=== PATIENT | male | born 1955 | race African-American/Black ===

== ENCOUNTER 2019-06-20 19:09 | Inpatient (IN) | payer OTHER ==
[~2019-06-20] VITALS: Ht 180.3 cm; Wt 103.4 kg
[2019-06-20 19:12] VITALS: BP 161/76
--- NOTE | 2019-06-20 19:19 | NUR ---
PATIENT TAKEN TO ER ROOM 3 WITHOUT OBTAINING UA FIRST D/T CHEST PAIN.
[2019-06-20 19:51] LABS: ABSOLUTE NEUTROPHILS 11.3 thou/uL (1.4-8.2); BASOPHILS 0.8 % (0.0-2.0); EOSINOPHILS 1.2 % (0.0-3.0); HEMATOCRIT 44.1 % (42.0-52.0); HEMOGLOBIN 14.7 gm/dL (14.0-18.0); LYMPHOCYTES 18.5 % (24.0-44.0); MCH 29.2 pg (26.0-34.0); MCHC 33.4 g/dL (28.0-37.0); MCV 87.6 fL (80.0-100.0); MONOCYTES 6.1 % (1.0-8.0); PLATELET COUNT 232 thou/uL (150-400); POLYS 73.4 % (36.0-66.0); RBC 5.04 mil/uL (4.50-6.00); RDW 13.7 % (10.5-14.5); WBC 15.4 thou/uL (4.0-11.0)
[2019-06-20 19:59] LABS: ANION GAP 8 mmol/L (7-16); BUN 12 mg/dL (7-18); CALCIUM 9.4 mg/dL (8.5-10.1); CHLORIDE 107 mmol/L (98-107); CO2 29 mmol/L (21-32); GLUCOSE 89 mg/dL (74-106); POTASSIUM 3.5 mmol/L (3.5-5.1); SODIUM 144 mmol/L (136-145)
[2019-06-20 20:05] LABS: ALBUMIN 3.6 g/dL (3.4-5.0); DIRECT BILIRUBIN < 0.1 mg/dL (<0.1-0.2); LIPASE 81 U/L (73-393); SGOT 12 U/L (15-37); SGPT 18 U/L (30-65); TOTAL BILIRUBIN 0.4 mg/dL (<0.1-1.0); TOTAL PROTEIN 7.4 g/dL (6.4-8.2)
[2019-06-20 23:14] VITALS: BP 162/88
[2019-06-20 23:59] VITALS: BP 149/89
[2019-06-21 00:25] VITALS: BP 147/67
--- NOTE | 2019-06-21 04:15 | NUR ---
ADMITTED FROM ER 'S CARE. ADMITTED WITH EPIGASTRIC PAIN. SEEN BY NOMI STODDARD PRINCIPAL SYSTEM SOFTWARE ENGINEER FOR . NO S/S ACUTE DISTRESS NOTED OR REPORTED AT THIS TIME. WILL CONT TO MONITOR FOR ANY CHANGES IN CONDITION.
[2019-06-21 08:00] VITALS: BP 155/82
--- NOTE | 2019-06-21 10:19 | NUR ---
Received awake on bed. Due medications given as prescribed, able to swallow meds w/o difficulty. On clear liquid diet- tolerating well; no nausea, no vomiting and no abdominal pain. On room air. Vital signs stable. Complained of pain, due PRN pain meds given as prescribed. With SL at R AC- intact. Up ad yolanda. With GI consult- Dr Mathews spa consultant- consult has been called in, a/w rounds. Independent with ADLs.
--- NOTE | 2019-06-21 11:24 | EKG ---
[place] [address] [facility] [place] [address] ELECTROCARDIOGRAM REPORT Name: YOHAN GALLEGO Room #: 449-I ADM IN M.R.#: [id number] Admission: 06/20/19 Attend Phys: Stefano Grimaldo MD Discharge: Date of : 53 Report #: [id number] THIS REPORT FOR: //name// [facility] ED Test Date: 2019-06-20 Test Time: 19:13:27 Pat Name: YOHAN GALLEGO Department: Room: [facility] Gender: M Admissions Evaluator: RAJENDRA : 1955 Requested By: Roya Marion Order Number: [id number] MD: Lowell Valle Measurements Intervals [place] Rate: 76 P: 71 [place]: 134 QRS: 77 QRSD: 98 T: 45 QT: 369 QTc: 415 Interpretive Statements Sinus rhythm Baseline wander in lead(s) V3 No previous ECG available for comparison Electronically Signed On 06-21-2019 11:24:16 MICROFILM CAMERA OPERATOR by Lowell Valle [email or web address] <ELECTRONICALLY SIGNED> By: Lowell Valle MD 06/21/19 1124 12 Lowell Valle MD /KRISSY
[2019-06-21 15:00] VITALS: BP 155/73
[2019-06-21 19:00] VITALS: BP 129/53
[2019-06-21 19:14] LABS: URINE BILIRUBIN NEGATIVE (Negative); URINE BLOOD NEGATIVE (Negative); URINE CLARITY CLEAR; URINE COLOR YELLOW; URINE GLUCOSE-RANDOM* NEGATIVE (Negative); URINE KETONES NEGATIVE (Negative); URINE LEUKOCYTES NEGATIVE (Negative); URINE NITRITE NEGATIVE (Negative); URINE PROTEIN (DIPSTICK) NEGATIVE (Negative)
[2019-06-22 04:32] VITALS: BP 104/46
[2019-06-22 07:00] VITALS: BP 122/68
[2019-06-22 07:05] VITALS: BP 123/57
[2019-06-22 07:09] LABS: HEMATOCRIT 41.3 % (42.0-52.0); HEMOGLOBIN 13.6 gm/dL (14.0-18.0); MCH 28.8 pg (26.0-34.0); MCHC 32.9 g/dL (28.0-37.0); MCV 87.4 fL (80.0-100.0); RBC 4.72 mil/uL (4.50-6.00); RDW 13.6 % (10.5-14.5); WBC 19.7 thou/uL (4.0-11.0)
[2019-06-22 07:10] VITALS: BP 123/71
--- NOTE | 2019-06-22 07:16 | NUR ---
ASSUMED CARE AROUND 1914. AXOX4. KEPT NPO AFTER MN FOR EGD IN AM. NO NAUSEA/VOMITING NOTED DURING SHIFT. NO S/S ACUTE DISTRESS NOTED OR REPORTED AT THIS TIME. CARE TRASNFERRED TO INCOMING RN.
[2019-06-22 07:23] LABS: ALBUMIN 2.9 g/dL (3.4-5.0); CALCIUM 8.6 mg/dL (8.5-10.1); CREATININE 1.1 mg/dL (0.7-1.3); PHOSPHORUS 2.5 mg/dL (2.5-4.9); POTASSIUM 3.5 mmol/L (3.5-5.1)
--- NOTE | 2019-06-22 10:59 | NUR ---
PT A&OX4, TEMP 100.1, DOCTOR AWARE, EPIGASTIC, UPPER ABD PAIN. PAIN MEDIATION GIVEN. PATIENT DOWN FOR EGD TODAY. NO SIGNS OF DISTRESS. WILL CONTINUE TO MONITOR.
--- NOTE | 2019-06-22 13:47 | NUR ---
PT ADMITTED RELATED TO ABD PAIN. CM REVIEWED CHART AND SPOKE WITH CARE TEAM. CM MET WITH PT AT BEDSIDE THIS DAY. PT IS A&O X4. CM ROLE INTRODCUED. PT INDICATED HE LIVES ALONE IN AN APARTMENT WITH NO STEPS TO ENTER AND 30 STEPS INSIDE. 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 PT INDICATED NO DME OR HH HX. PT INDICATED HE PLANS TO RETURN HOME ONCE MEDICALLY STABLE. PT TO HAVE EGD THIS DAY. CARE TEAM INDICATED THAT HE MAY REQUIRE LAP ANJUM DEPENDING ON FINDINGS. CM TO FOLLOW INDICATED WITH DC PLANNING.
[2019-06-22 15:10] VITALS: BP 124/61
[2019-06-22 20:20] VITALS: BP 124/63
[2019-06-23] VITALS (8 sets, daily range): BP systolic 117–149; BP diastolic 68–84
--- NOTE | 2019-06-23 01:27 | NUR ---
ASSUMED CARE OF PT AT 1900HRS. PT IS AOX4 AND LETS NEEDS BE KNOWN. PT IS UP AD BAM. PT REPORTS MINIMAL PAIN AND DENIES NAUSEA. ABX TREATMENT CONTINUED. PT PLACED ON NPO AT WI FOR PROCEDURE IN THE AM. VSS AND NO S/S OF ACUTE DISTRESS. PT WAS ABLE TO GET COMFORTABLE AND SLEEP PART OF THE SHIFT. WILL CONTINUE TO MONITOR.
[2019-06-23 06:13] LABS: HEMOGLOBIN 12.8 gm/dL (14.0-18.0); MCH 29.3 pg (26.0-34.0); MCHC 32.9 g/dL (28.0-37.0); MCV 89.3 fL (80.0-100.0); RBC 4.37 mil/uL (4.50-6.00); RDW 13.9 % (10.5-14.5); WBC 17.2 thou/uL (4.0-11.0)
[2019-06-23 06:31] LABS: ALBUMIN 2.7 g/dL (3.4-5.0); CREATININE 1.1 mg/dL (0.7-1.3); POTASSIUM 3.8 mmol/L (3.5-5.1); TOTAL BILIRUBIN 0.6 mg/dL (<0.1-1.0); TOTAL PROTEIN 6.6 g/dL (6.4-8.2)
--- NOTE | 2019-06-23 11:13 | NUR ---
Patient already in the OR during shift change as per maintenance supervisor 2nd shift nurse. Back to room at 10:20am, transferred to bed safely. On room air. Vital signs stable. Post op vital signs taken. No complaints of pain 06/19. May have regular diet for lunch, tried clear liquids- tolerated well; no nausea, no vomiting and no abdominal pain noted. Able to swallow meds w/o difficulty. With SL at R AC- resumed NS at 75cc/hr. Up ad yolanda. Surgical abdominal wound checked, 4 lap sites noted with dermabond, C/D/I, no signs of infection noted. Assisted in ADLs. Pt seen by Dr Bhatti- to monitor patient and check how he does with regular diet for lunch- for possible discharge this afternoon.
[2019-06-23] MEDS ORDERED: MAG-AL PLUS SUS30 ML PO (14:44)
[2019-06-23] MEDS ORDERED: CARAFATE 11 GM/10 M1 PO (14:44)
[2019-06-23] MEDS ORDERED: AUGMENTIN 875-1 EACH PO (14:44)
[2019-06-23] MEDS ORDERED: PANTOPRAZOLE SO40 M1 PO (14:44)
--- NOTE | 2019-06-23 15:02 | NUR ---
CARE TEAM INDICATED THAT PT IS MEDICALLY STABLE TO DC HOME THIS DAY AFTER LAP ANJUM THIS AM. PT IS TO DC HOME TO SELF CARE. NO OTHER CM INTERVENTION INDICATED. CASE CLOSED.
--- NOTE | 2019-06-23 16:06 | PATH ---
[facility] [place] [address] PATHOLOGY RPT PROCEDURE Name: SANDYDoniYOHAN Room #: 449-I ADM IN M.R.#: [id number] Admission: 06/20/19 Date of : 53 Discharge: Report #: [id number] Path Case #: [id number] [facility] Accession Number: [id number] . 01 Material submitted: . PART A: stomach - BX OF ANTRUM PART B: esophagus - BX OF DISTAL ESOPHAGUS. Modifiers: distal . 01 Clinical history: . Pre-OP DX: Abdominal pain Post-OP DX: Esophagitis, hiatal hernia, gastric erosions . 02 Diagnosis: A. Gastric mucosa, antrum to rule out H. pylori, endoscopic biopsy: - Mild chronic active gastritis with features of reactive gastropathy and focal intestinal metaplasia. - Negative for atrophy or dysplasia. - Negative for Helicobacter pylori (properly-controlled immunohistochemical stain performed). . B. Gastroesophageal mucosa, distal esophagus to rule out Saenz's, endoscopic biopsy: - Columnar gastric-type mucosa with moderate chronic inflammation. - Squamous mucosa with mild to moderate active esophagitis. - Negative for intestinal metaplasia or dysplasia. . (IUV:mml; 06/23/2019) QLM 06/23/2019 1232 Local . 02 Electronically signed: . Izabela Raymond MD, Pathologist NPI- [id number] . 01 Gross description: . A. Received in formalin labeled "Yohan Muniz, BX of antrum to rule out H. pylori," are 2 segments of may soft tissue measuring 0.7 x 0.2 x 0.2 cm in aggregate dimensions and ranging from 0.3 to 0.4 cm in maximum dimension. The specimen is submitted entirely in cassette A1. . B. Received in formalin labeled "Yohan Muniz, BX of distal esophagus to rule out Saenz's," is a single segment of may soft tissue measuring 0.5 cm in maximum dimension. The specimen is entirely submitted in cassette B1. (TSD; 06/22/2019) TOB/TOB 06/22/2019 1701 Local . 02 Pathologist provided ICD-10: [address] [address] PATHOLOGY RPT PROCEDURE Name: YOHAN MUNIZ Room #: 449-I ADM IN M.R.#: [id number] Admission: 06/20/19 Date of : 53 Discharge: Report #: [id number] Path Case #: [id number] K29.50, K20.9 . 02 CPT . 932770, [id number], [id number] Specimen Comment: A courtesy copy of this report has been sent to [phone] Specimen Comment: [phone] Specimen Comment: Report sent to / DR DODD Performed at: [address], [place] [id number] MD Rocky Biggs MD Phone: [phone] Performed at: [address] [id number] MD Izabela Raymond MD Phone: [phone]
--- NOTE | 2019-06-23 20:03 | NUR ---
ASSUMED CARE OF PT AT 1900HRS. PT AOX4. IV REMOVED. EDUCATION COMPLETED BY AM RN. PT DISCHARGED VIA WHEELCHAIR AT 1950HRS.
--- NOTE | 2019-06-24 17:06 | PATH ---
[facility] [address] [place] [address] PATHOLOGY RPT PROCEDURE Name: YOHAN MUNIZ Room #: 449-I [facility] IN M.R.#: [id number] Admission: 06/20/19 Date of : 53 Discharge: 06/23/19 Report #: [id number] Path Case #: [id number] [facility] Accession Number: [id number] . 01 Material submitted: . gallbladder - GALLBLADDER . 01 Clinical history: . Cholelithiasis and cholecystitis . 02 Diagnosis: Gallbladder, cholecystectomy: - Marked acute and gangrenous cholecystitis with extensive ulceration. - Cholelithiasis. - Focal hepatic parenchyma present at gallbladder bed showing nonspecific reactive changes. (IUV:nutrition services worker; 06/24/2019) MBR 06/24/2019 1442 Local . 02 Electronically signed: . Izabela Raymond MD, Pathologist NPI- [id number] . 01 Gross description: . The specimen is received in formalin labeled "Yohan Muniz, gallbladder" and consists of a ragged fragmented pink-may gallbladder measuring 11.5 x 4.8 x 2.2 cm. The possible margin is inked black. Present within the container and lumen are multiple fragmented green brown to black calculi measuring up to 2.5 cm. The mucosa is gangrenous necrotic with an average wall thickness of 0.2 cm. No masses are identified. Machine Wiper sections are submitted in A1-A3. (SDY; 06/23/2019) SYU/SYU 06/23/2019 1613 Local . 02 Pathologist provided ICD-10: K80.00 . 02 CPT . 737218 Specimen Comment: A courtesy copy of this report has been sent to [phone] Specimen Comment: [phone], Specimen Comment: Report sent to ,DR DODD / DR PIERRE Performed at: [address], [place] [id number] MD Rocky Biggs MD Phone: [phone] [place] [address] PATHOLOGY RPT PROCEDURE Name: YOHAN MUNIZ Room #: 449-I DIS IN M.R.#: [id number] Admission: 06/20/19 Date of : 53 Discharge: 06/23/19 Report #: [id number] Path Case #: [id number] Performed at: [address], [place], [place] [id number] MD Izabela Raymond MD Phone: [phone]
== END 2019-06-23 19:50 | disposition home or self-care (01) | DRG 417 ==
LOC: ER 19:09 → 4W 22:52 → EROBS 22:52 → 4W 23:59
PROVIDERS: Emergency Medicine; Surgery; ADMIT Hospitalist
PROC: 0DB68ZX Excision of Stomach, Via Natural or Artificial Opening Endoscopic, Diagnostic (ICD-10-PCS; principal; 2019-06-22)
PROC: 0DB38ZX Excision of Lower Esophagus, Via Natural or Artificial Opening Endoscopic, Diagnostic (ICD-10-PCS; principal; 2019-06-22)
PROC: 0FT44ZZ Resection of Gallbladder, Percutaneous Endoscopic Approach (ICD-10-PCS; 2019-06-23)
DX: K80.10 Calculus of gallbladder with chronic cholecystitis without obstruction (principal); E43 Unspecified severe protein-calorie malnutrition; D72.829 Elevated white blood cell count, unspecified; F17.210 Nicotine dependence, cigarettes, uncomplicated; E66.9 Obesity, unspecified; K21.0 Gastro-esophageal reflux disease with esophagitis; K44.9 Diaphragmatic hernia without obstruction or gangrene; K29.80 Duodenitis without bleeding; K82.8 Other specified diseases of gallbladder; K29.00 Acute gastritis without bleeding; Z80.3 Family history of malignant neoplasm of breast; Z84.89 Family history of other specified conditions; Z68.31 Body mass index [BMI] 31.0-31.9, adult; Z79.899 Other long term (current) drug therapy
CPT/HCPCS: 10040; 50010; 50101; 50249; 50411; 50555; 50558; 51489; 52265; 52266; 53307; 53310; 53312; 54022; 54118; 55245; 56462; 56525; 56526; 62110; 62900; 70005